=== PATIENT | male | born 1930 | race Caucasian/White ===

== ENCOUNTER 2017-03-12 14:41 | Emergency (ER) | payer OTHER ==
[~2017-03-12] VITALS: Ht 172.7 cm; Wt 86.1 kg
[2017-03-12] MEDS ORDERED: ROBAXIN500 MG PO (20:05)
[2017-03-12] MEDS ORDERED: ENDOCET 5-3251 EACH PO (20:05)
[2017-03-12] MEDS ORDERED: LIDODERM 5% P1 PATCH TD (20:05)
[2017-03-12 20:40] VITALS: BP 116/70
== END 2017-03-12 20:41 | disposition home or self-care (01) ==
LOC: EME → EDBD 14:41 → EME 20:41
DX: M54.12 Radiculopathy, cervical region (principal); S30.0XXA Contusion of lower back and pelvis, initial encounter; W18.30XA Fall on same level, unspecified, initial encounter; I48.91 Unspecified atrial fibrillation; Z79.01 Long term (current) use of anticoagulants; Z87.891 Personal history of nicotine dependence
CPT/HCPCS: 70450; 72100; 72125; 99281; 99284

== ENCOUNTER 2017-11-11 15:40 | Inpatient (IN) | payer OTHER ==
[~2017-11-11] VITALS: Ht 172.7 cm; Wt 91.8 kg
[~2017-11-11 15:40] MED LIST: ENDOCET 5-3251 EACH PO; LIDODERM 5% P1 PATCH TD; ROBAXIN500 MG PO
[2017-11-11 16:37] LABS: HEMATOCRIT 28.3 % (38.0-50.0); HEMOGLOBIN 8.5 G/DL (12.5-16.6); MCH 26.2 PG (29.0-34.0); MCV 87.1 FL (86-99); PLATELET COUNT 130 K/uL (156-360); RBC DIS.WIDTH-CV 22.1 % (11.8-14.6); RBC DIS.WIDTH-SD 68.9 % (39-53); RED BLOOD COUNT 3.25 M/uL (4.00-5.50); WHITE BLOOD COUNT 9.5 K/uL (4.1-10.2)
[2017-11-11 16:39] LABS: CARBON DIOXIDE (BICARBONATE) 26.7 MEQ/L (20-31)
[2017-11-11 16:44] LABS: INTER. NORMALIZED RATIO 1.9
[2017-11-11 16:50] LABS: CHLORIDE 105 mEq/L (99-109); POTASSIUM 3.6 mEq/L (3.7-5.4); SODIUM 141 mEq/L (136-147)
[2017-11-11 16:51] LABS: GLUCOSE 115 mg/dL (70-99)
[2017-11-11 16:55] LABS: CREATININE 1.3 mg/dL (0.6-1.3); GFR ESTIMATE (CALCULATED) 55 mL/min/ (58.99-99999)
[2017-11-11 16:56] LABS: UREA NITROGEN (BUN) 31 mg/dL (9-23)
[2017-11-11 17:00] LABS: TROP-I INTERPRETATION NEGATIVE; TROPONIN-I 0.06 ng/mL (0.0-0.30)
[2017-11-11] MEDS ORDERED: COREG25 M1 PO (20:56)
[2017-11-11] MEDS ORDERED: INSPRA25 MG PO (20:56)
[2017-11-11] MEDS ORDERED: ZYLOPRIM100 MG PO (20:56)
[2017-11-11] MEDS ORDERED: PROTONIX40 MG PO (20:57)
[2017-11-11] MEDS ORDERED: SINGULAIR10 MG PO (20:57)
[2017-11-11] MEDS ORDERED: ZOLOFT100 MG PO (20:57)
[2017-11-11] MEDS ORDERED: VITAMIN B122500 MC1 PO (20:58)
[2017-11-11] MEDS ORDERED: GUMMI BEAR MUL1 EACH PO (20:59)
[2017-11-11] MEDS ORDERED: VITAMIN D35000 UNIT PO (21:00)
[2017-11-11] MEDS ORDERED: MAG6464 M2 PO (21:00)
[2017-11-11] MEDS ORDERED: GLUCOPHAGE500 MG PO (21:00)
[2017-11-11] MEDS ORDERED: POTASSIUM CHLO20 ME2 PO (21:01)
[2017-11-11] MEDS ORDERED: NEVANAC 0.60 DROP/3 RIGHT EYE (21:01)
[2017-11-11] MEDS ORDERED: PRESERVISION A1 EAC2 PO (21:01)
[2017-11-11] MEDS ORDERED: XALATAN2.5 ML LEFT EYE (21:02)
[2017-11-11] MEDS ORDERED: COUMADIN3 MG PO (21:02)
[2017-11-11] MEDS ORDERED: CEFTIN500 MG PO (21:03)
[2017-11-11] MEDS ORDERED: TYLENOL REGULA325 MG PO (21:04)
[2017-11-11] MEDS ORDERED: DAIRY AID3000 UNI1 PO (21:05)
[2017-11-11] MEDS ORDERED: LIDODERM 5% P1 PATCH TD (21:05)
[2017-11-11] MEDS ORDERED: PERCOCET 5/31 TABLET PO (21:06)
[2017-11-11] MEDS ORDERED: DUONEB 2.5-0.5 M3 ML AEROSOL (21:07)
[2017-11-12 00:03] VITALS: BP 144/75
[2017-11-12] MEDS ORDERED: LASIX40 MG PO (01:04)
[2017-11-12] MEDS ORDERED: DORZOLAMIDE-TIM10 ML BOTH EYES (01:11)
[2017-11-12 04:36] VITALS: BP 156/74
[2017-11-12 06:02] LABS: HEMOGLOBIN 8.2 G/DL (12.5-16.6); MCH 25.5 PG (29.0-34.0); MCHC 29.3 G/DL (30.0-36.0); MCV 87.2 FL (86-99); PLATELET COUNT 133 K/uL (156-360); RBC DIS.WIDTH-CV 21.8 % (11.8-14.6); RBC DIS.WIDTH-SD 68.1 % (39-53); RED BLOOD COUNT 3.21 M/uL (4.00-5.50); WHITE BLOOD COUNT 7.7 K/uL (4.1-10.2)
[2017-11-12 06:26] LABS: CHLORIDE 104 MEQ/L (99-109); CREATININE 1.3 MG/DL (0.6-1.3); GFR ESTIMATE (CALCULATED) 55 mL/min/ (58.99-99999); POTASSIUM 3.7 MEQ/L (3.7-5.4); SODIUM 141 MEQ/L (136-147); UREA NITROGEN (BUN) 30 mg/dL (9-23)
[2017-11-12 06:29] LABS: GLUCOSE 259 mg/dL (70-99)
[2017-11-12 07:51] VITALS: BP 142/78
[2017-11-12 11:25] VITALS: BP 140/90
[2017-11-12 11:55] LABS: INTER. NORMALIZED RATIO 1.7
[2017-11-12 17:06] VITALS: BP 111/64
[2017-11-12 20:00] VITALS: BP 112/63
[2017-11-13] VITALS (7 sets, daily range): BP systolic 110–170; BP diastolic 62–93
[2017-11-13 07:02] LABS: HEMATOCRIT 30.1 % (38.0-50.0); HEMOGLOBIN 8.7 G/DL (12.5-16.6); INTER. NORMALIZED RATIO 2.2; MCH 25.8 PG (29.0-34.0); MCHC 28.9 G/DL (30.0-36.0); MCV 89.3 FL (86-99); PLATELET COUNT 144 K/uL (156-360); RBC DIS.WIDTH-SD 70.1 % (39-53); RED BLOOD COUNT 3.37 M/uL (4.00-5.50); WHITE BLOOD COUNT 12.2 K/uL (4.1-10.2)
[2017-11-13 07:21] LABS: CHLORIDE 104 MEQ/L (99-109); CREATININE 1.1 MG/DL (0.6-1.3); GFR ESTIMATE (CALCULATED) > 59 mL/min/ (58.99-99999); GLUCOSE 220 mg/dL (70-99); IRON 30 MCG/DL (35-150); POTASSIUM 4.1 MEQ/L (3.7-5.4); SODIUM 141 MEQ/L (136-147); TRANSFERRIN (TIBC) 328.2 mg/dL (215-380); TRANSFERRIN SATUR. 9 % (20-55); UREA NITROGEN (BUN) 37 mg/dL (9-23)
[2017-11-13 07:40] LABS: BASOPHIL (%) 0.1 % (0-1); EOSINOPHIL (%) 0 % (0-5); IMMATURE GRANULOCYTE (%) 0.8 % (0.0-0.7); LYMPHOCYTE (%) 4.1 % (15-42); LYMPHOCYTE COUNT 0.5 K/uL (1.0-2.8); MONOCYTE (%) 3.4 % (3-12); MONOCYTE COUNT 0.4 K/uL (0-0.8); NEUTROPHIL (%) 91.6 % (45-76); NEUTROPHIL COUNT 11.2 K/uL (1.8-6.4)
[2017-11-14] VITALS (7 sets, daily range): BP systolic 120–141; BP diastolic 66–84
[2017-11-14 06:29] LABS: BASOPHIL (%) 0.1 % (0-1); EOSINOPHIL (%) 0.1 % (0-5); HEMATOCRIT 32.1 % (38.0-50.0); HEMOGLOBIN 9.2 G/DL (12.5-16.6); IMMATURE GRANULOCYTE (%) 0.8 % (0.0-0.7); LYMPHOCYTE (%) 7.2 % (15-42); LYMPHOCYTE COUNT 1.1 K/uL (1.0-2.8); MCH 25.4 PG (29.0-34.0); MCHC 28.7 G/DL (30.0-36.0); MCV 88.7 FL (86-99); MONOCYTE COUNT 1.1 K/uL (0-0.8); NEUTROPHIL (%) 84.8 % (45-76); NEUTROPHIL COUNT 13.1 K/uL (1.8-6.4); PLATELET COUNT 156 K/uL (156-360); RBC DIS.WIDTH-CV 21.6 % (11.8-14.6); RBC DIS.WIDTH-SD 67.9 % (39-53); RED BLOOD COUNT 3.62 M/uL (4.00-5.50); WHITE BLOOD COUNT 15.5 K/uL (4.1-10.2)
[2017-11-14 06:55] LABS: CHLORIDE 105 MEQ/L (99-109); CREATININE 1.1 MG/DL (0.6-1.3); GFR ESTIMATE (CALCULATED) > 59 mL/min/ (58.99-99999); GLUCOSE 121 mg/dL (70-99); POTASSIUM 3.9 MEQ/L (3.7-5.4); SODIUM 140 MEQ/L (136-147); UREA NITROGEN (BUN) 36 mg/dL (9-23)
[2017-11-14 06:57] LABS: INTER. NORMALIZED RATIO 2.8
[2017-11-14 08:16] LABS: FOLIC ACID (FOLATE) 12.6 NG/ML (5.0-22.0)
[2017-11-15 03:27] VITALS: BP 134/80
[2017-11-15 07:24] LABS: INTER. NORMALIZED RATIO 2.5
[2017-11-15 07:31] VITALS: BP 140/94
[2017-11-15 12:16] VITALS: BP 140/78
[2017-11-15 16:05] VITALS: BP 146/65
[2017-11-15 20:07] VITALS: BP 119/65
[2017-11-16 00:03] VITALS: BP 139/71
[2017-11-16 03:55] VITALS: BP 142/77
[2017-11-16 07:20] VITALS: BP 150/90
[2017-11-16 07:42] LABS: INTER. NORMALIZED RATIO 1.9
[2017-11-16 11:32] VITALS: BP 125/70
[2017-11-16] MEDS ORDERED: PREDNISONE10 M1 PO (13:12)
[2017-11-16] MEDS ORDERED: LEVAQUIN750 MG PO (13:13)
[2017-11-16 16:03] VITALS: BP 117/68
== END 2017-11-16 16:23 | DRG 194 ==
LOC: EME 15:40 → EDOF 20:27 → 3EAST 20:27 → ENRESERV 20:52 → 3EAST 11-12 00:08 → ENRESERV 11-12 22:22 → 2EAST 11-13 00:24
PROVIDERS: Emergency Medicine; Family Medicine Sports Medicine
DX: J18.9 Pneumonia, unspecified organism (principal); J44.1 Chronic obstructive pulmonary disease with (acute) exacerbation; J44.0 Chronic obstructive pulmonary disease with (acute) lower respiratory infection; I13.0 Hypertensive heart and chronic kidney disease with heart failure and stage 1 through stage 4 chronic kidney disease, or unspecified chronic kidney disease; I50.9 Heart failure, unspecified; N18.9 Chronic kidney disease, unspecified; E11.22 Type 2 diabetes mellitus with diabetic chronic kidney disease; D69.6 Thrombocytopenia, unspecified; D63.8 Anemia in other chronic diseases classified elsewhere; I87.2 Venous insufficiency (chronic) (peripheral); I87.8 Other specified disorders of veins; L97.921 Non-pressure chronic ulcer of unspecified part of left lower leg limited to breakdown of skin; E53.8 Deficiency of other specified B group vitamins; R16.2 Hepatomegaly with splenomegaly, not elsewhere classified; I48.91 Unspecified atrial fibrillation; N28.89 Other specified disorders of kidney and ureter; K80.20 Calculus of gallbladder without cholecystitis without obstruction; E78.5 Hyperlipidemia, unspecified; G89.29 Other chronic pain; M54.12 Radiculopathy, cervical region; M54.5 Low back pain; F32.9 Major depressive disorder, single episode, unspecified; F41.9 Anxiety disorder, unspecified; K21.9 Gastro-esophageal reflux disease without esophagitis; M19.90 Unspecified osteoarthritis, unspecified site; Z66 Do not resuscitate; Z79.01 Long term (current) use of anticoagulants; Z83.3 Family history of diabetes mellitus; Z82.49 Family history of ischemic heart disease and other diseases of the circulatory system; Z96.653 Presence of artificial knee joint, bilateral
CPT/HCPCS: 71046; 71250; 80048; 82272; 82607; 82746; 82803; 82948; 83540; 83605; 83880; 84466; 84484; 85025; 85027; 85610; 87040; 87070; 87205; 87502; 93005; 94640; 94640 76; 94760; 94799; 97530 GO; 97530 GP; 99202; 99281; 99285; J0456; J0696; J1815; J2930; J7512